=== PATIENT | female | born 1970 | race Asian ===

== ENCOUNTER → 2018-07-08 | Outpatient (CLI) | payer OTHER | LOC: CIMAGING 07:42 ==

== ENCOUNTER → 2018-07-12 | Outpatient (CLI) | payer OTHER | LOC: CIMAGING 07:19 | PROVIDERS: ATTEND Nurse Practitioner | DX: N88.8 Other specified noninflammatory disorders of cervix uteri (principal); E03.8 Other specified hypothyroidism | CPT/HCPCS: 76856-PO ==